=== PATIENT | female | born 1965 | race Caucasian/White ===

== ENCOUNTER 2023-06-19 14:30 | Inpatient (IN) | payer MEDICARE ==
[~2023-06-19 14:30] MED LIST: Iopamidol 370 76% 100 ML VIAL ONE
[2023-06-19] MEDS ORDERED: Morphine 4 MG/ML VIAL ONE (15:33)
[2023-06-19 15:34] LABS: #Basophils 0.1 10x3/uL (0.0-0.2); #Eosinphils 0.1 10x3/uL (0.0-0.5); #Monocytes 1.5 10x3/uL (0.0-1.1); #Neutrophils 8.9 10x3/uL (1.5-8.4); %Basophils 0.5 % (0.0-2.0); %Eosinophils 1.1 % (0.0-6.0); %Lymphocytes 5.4 % (18.0-47.0); %Monocytes 12.9 % (0.0-10.0); %Neutrophils 79.1 % (40.0-75.0); Hematocrit 34.9 % (34.9-44.5); Hemoglobin 11.8 g/dL (12.0-15.5); Mean Corpuscular HGB CONC 33.8 g/dL (32.0-36.0); Mean Corpuscular Hemoglobin 30.6 pg (27.0-33.0); Mean Corpuscular Volume 90.4 fl (81.6-98.3); Platelet Count 125 10x3/uL (150-450); RBC Distribution Width 14.3 % (11.5-14.5); Red Blood Cell (RBC) Count 3.86 10x6/uL (3.90-5.03); White Blood Cell (WBC) Count 11.3 10x3/uL (3.5-10.5)
[2023-06-19] MEDS ORDERED: Ondansetron PF 4 MG/2 ML Vial ONE (15:34)
[2023-06-19] MEDS ORDERED: Ketorolac Tromethamine 30 MG/ML VIAL ONE (15:34)
[2023-06-19 15:44] LABS: ALT (SGPT) 12 U/L (8-55); AST (SGOT) 12 U/L (5-34); Albumin 3.1 g/dL (3.5-5.0); Alkaline Phosphatase 211 U/L (40-110); Anion Gap 14 mmol/L (10-20); BUN (Urea Nitrogen) 19 mg/dL (9.8-20.1); Bilirubin, Total 2.8 mg/dL (0.2-1.2); Calc. Creatinine Clearance 0 mL/min (70-130); Calcium 8.5 mg/dL (7.8-10.44); Carbon Dioxide 20 mmol/L (22-29); Chloride 102 mmol/L (98-107); Estimated GFR 44; Globulin 2.6 g/dL (2.4-3.5); Glucose 96 mg/dL (70-105); Potassium 3.8 mmol/L (3.5-5.1); Protein, Total 5.7 g/dL (6.0-8.3); Sodium 132 mmol/L (136-145)
[2023-06-19 15:47] LABS: Troponin I Less than 0.010 ng/mL (< 0.028)
[2023-06-19 16:01] LABS: Acetaminophen Less than 10 mcg/mL (10.0-30.0); Alcohol Less than 10.0 mg/dL (Less than 10); Lipase 11 U/L (8-78); Salicylate Less than 8.0 mg/dL (15.0-30.0)
[2023-06-19 16:44] LABS: Bilirubin 3+ (Negative); Blood, Urine 50 (Negative); Clarity Cloudy (Clear); Glucose, Urine (Dipstick) Normal (Negative); Ketone, Urine Negative (Negative); Leukocyte 500 (Negative); Nitrite Negative (Negative); Protein, Urine (Dipstick) 100 mg/dl (Neg-Trace); Urobilinogen 12 mg/dL (Less than 2)
[2023-06-19 16:52] LABS: Amphetamine Not Detected (NotDetected); Barbiturates Screen Not Detected (NotDetected); Benzodiazepine Screen Detected (NotDetected); CAUTI Indications for Culture Pelvic or flank pain; Cocaine Metabolite Screen Not Detected (NotDetected); Methadone Not Detected (NotDetected); Methamphetamine Not Detected (NotDetected); Opiate Screen Detected (NotDetected); Oxycodone Screen Not Detected (NotDetected); Phencyclidine (PCP) Not Detected (NotDetected); Squamous Epithelial 0-3 HPF (0-3); THC/Cannabinoid Screen Not Detected (NotDetected); Tricyclic Screen Not Detected (NotDetected); WBC/HPF Greater Than 50 HPF (0-3)
[2023-06-19 16:53] LABS: Bacteria/HPF 3+ HPF (None Seen); Transitional Epithelial 0-3 HPF (None Seen); Urine Culture Reflex Yes Yes
[2023-06-19 17:26] LABS: SARS-CoV-2 NAA Rapid Test Not Detected (NotDetected)
[2023-06-19] MEDS ORDERED: cefTRIAXone (ROCEPHIN) 1 GM VIAL ONE (17:33)
[2023-06-19] MEDS ORDERED: diphenhydrAMINE 50 MG/ML VIAL ONE (18:50)
[2023-06-19] MEDS ORDERED: Metoclopramide HCl 10 MG/2 ML VIAL ONE (18:50)
[2023-06-19] MEDS ORDERED: Ondansetron PF 4 MG/2 ML Vial IVP PRN (20:10)
[2023-06-19] MEDS ORDERED: Guaifenesin DM 100-10/5 ML UDCUP PO PRN (20:10)
[2023-06-19] MEDS ORDERED: Calcium Carbonate 500 MG ChewTAB PO PRN (20:10)
[2023-06-19 21:25] VITALS: BMI 29.0
[2023-06-19] MEDS ORDERED: Albumin 25% 25 GM/100 ML BOT IVPB SCH (21:30)
[2023-06-19] MEDS ORDERED: Potassium Chloride 20 MEQ TAB PO SCH (21:30)
[2023-06-19] MEDS ORDERED: Lactated Ringer's 1,000 ML IV SCH (21:30)
[2023-06-19] MEDS: Acetaminophen 325 MG TAB PO PRN (21:56)
[2023-06-19 23:44] LABS: Troponin I Less than 0.010 ng/mL (< 0.028)
[2023-06-20] MEDS ORDERED: traMADol HCl 50 MG TAB PO SCH (00:15)
[2023-06-20] MEDS ORDERED: FLU VACC QS2023-24(6MOS UP)/PF 60 MCG/0.5 ML SYRINGE IM ONE (03:45)
[2023-06-20 07:43] LABS: Hemoglobin 10.6 g/dL (12.0-15.5); Mean Corpuscular HGB CONC 33.1 g/dL (32.0-36.0); Mean Corpuscular Hemoglobin 30.4 pg (27.0-33.0); Mean Corpuscular Volume 91.7 fl (81.6-98.3); Mean Platelet Volume 9.9 fl (7.4-10.4); Platelet Count 140 10x3/uL (150-450); RBC Distribution Width 14.8 % (11.5-14.5); Red Blood Cell (RBC) Count 3.49 10x6/uL (3.90-5.03); White Blood Cell (WBC) Count 11.9 10x3/uL (3.5-10.5)
[2023-06-20 07:48] LABS: ALT (SGPT) 11 U/L (8-55); AST (SGOT) 16 U/L (5-34); Alkaline Phosphatase 255 U/L (40-110); Anion Gap 13 mmol/L (10-20); BUN (Urea Nitrogen) 16 mg/dL (9.8-20.1); Bilirubin, Total 2.6 mg/dL (0.2-1.2); Calc. Creatinine Clearance 60 mL/min (70-130); Calcium 8.7 mg/dL (7.8-10.44); Carbon Dioxide 18 mmol/L (22-29); Chloride 110 mmol/L (98-107); Estimated GFR 49; Globulin 2.7 g/dL (2.4-3.5); Glucose 102 mg/dL (70-105); Protein, Total 5.7 g/dL (6.0-8.3); Sodium 137 mmol/L (136-145)
[2023-06-20] MEDS: Acetaminophen 325 MG TAB PO PRN (08:10)
[2023-06-20] MEDS: Escitalopram Oxalate 10 mg Tablet PO SCH (08:12)
[2023-06-20] MEDS: Multivitamin W/ Minerals 1 TAB PO SCH (08:12)
[2023-06-20] MEDS: Aspirin 81 mg Enteric Coated Tablet PO SCH (08:12)
[2023-06-20 08:41] LABS: Band 16 % (5-11); Eosinophils 2 % (0-10); Lymphocytes 8 % (21-51); Monocytes 11 % (0-10)
[2023-06-20 08:45] LABS: Neutrophil 58 % (42-75); Reactive Lymphocytes 5 % (0-10)
[2023-06-20 08:46] LABS: Ovalocytes SLIGHT = 2-5 cells (100X) (0-1/hpf)
[2023-06-20 08:47] LABS: Anisocytosis SLIGHT = 6-15 cells (100X) (0-5/hpf); Platelet Adequacy Comment Appears Adequate
[2023-06-20 08:49] LABS: MDiff Complete? YES
[2023-06-20 09:18] LABS: Free T4 (Free Thyroxine) 1.04 ng/dL (0.70-1.48); Thyroid Stimulating Hormone 1.9867 uIU/mL (0.35-4.94)
[2023-06-20] MEDS: Acetaminophen/Codeine 30-300mg Tablet PO PRN ×2 (12:52→21:21)
[2023-06-20] MEDS: diphenhydrAMINE 25 MG CAP PO PRN ×2 (12:53→21:29)
[2023-06-20] MEDS: cefTRIAXone\\ROCEPHIN 1 GM in Sodium Chloride 0.9% 100 ML IVPB SCH (17:49)
[2023-06-20] MEDS: Amlodipine 5 MG TAB PO SCH (21:23)
[2023-06-20] MEDS: busPIRone HCl 15 MG TAB PO SCH (21:23)
[2023-06-21] MEDS: Acetaminophen 325 MG TAB PO PRN (04:37)
[2023-06-21] MEDS ORDERED: Carvedilol 3.125 MG TAB PO SCH (08:00)
[2023-06-21 08:12] LABS: Hemoglobin 10.5 g/dL (12.0-15.5); Mean Corpuscular HGB CONC 33.9 g/dL (32.0-36.0); Mean Corpuscular Hemoglobin 30.2 pg (27.0-33.0); Mean Corpuscular Volume 89.1 fl (81.6-98.3); Mean Platelet Volume 9.3 fl (7.4-10.4); Platelet Count 176 10x3/uL (150-450); RBC Distribution Width 14.5 % (11.5-14.5); Red Blood Cell (RBC) Count 3.48 10x6/uL (3.90-5.03); White Blood Cell (WBC) Count 9.4 10x3/uL (3.5-10.5)
[2023-06-21 08:17] LABS: Troponin I Less than 0.010 ng/mL (< 0.028)
[2023-06-21 08:35] LABS: ALT (SGPT) 11 U/L (8-55); AST (SGOT) 21 U/L (5-34); Albumin 2.9 g/dL (3.5-5.0); Alkaline Phosphatase 246 U/L (40-110); Anion Gap 13 mmol/L (10-20); BUN (Urea Nitrogen) 11 mg/dL (9.8-20.1); Calc. Creatinine Clearance 70 mL/min (70-130); Calcium 8.7 mg/dL (7.8-10.44); Carbon Dioxide 20 mmol/L (22-29); Chloride 109 mmol/L (98-107); Estimated GFR 59; Globulin 2.8 g/dL (2.4-3.5); Glucose 96 mg/dL (70-105); Magnesium 1.8 mg/dL (1.6-2.6); Potassium 3.3 mmol/L (3.5-5.1); Protein, Total 5.7 g/dL (6.0-8.3); Sodium 139 mmol/L (136-145)
[2023-06-21 08:46] LABS: Band 14 % (5-11); Eosinophils 1 % (0-10); Lymphocytes 8 % (21-51); Metamyelocyte 1 % (0-0); Monocytes 13 % (0-10); Myelocyte 1 % (0-0); Neutrophil 60 % (42-75); Reactive Lymphocytes 2 % (0-10)
[2023-06-21] MEDS: Multivitamin W/ Minerals 1 TAB PO SCH (08:47)
[2023-06-21] MEDS: Magnesium Oxide 400 MG TAB PO SCH (08:47)
[2023-06-21] MEDS: busPIRone HCl 15 MG TAB PO SCH ×2 (08:47→20:16)
[2023-06-21] MEDS: Aspirin 81 mg Enteric Coated Tablet PO SCH (08:48)
[2023-06-21] MEDS: Escitalopram Oxalate 10 mg Tablet PO SCH (08:48)
[2023-06-21 08:52] LABS: Platelet Adequacy Comment Appears Adequate; Platelet Clumps SLIGHT; RBC Morph Comment Within Normal Limits
[2023-06-21 08:53] LABS: MDiff Complete? YES
[2023-06-21] MEDS ORDERED: Magnesium 2 GM/50 ML(in water) 2 GM in Premix 1 BAG IVPB SCH ×3 (10:00→16:45)
[2023-06-21] MEDS ORDERED: Potassium Chloride 20 MEQ TAB PO SCH ×3 (10:00→16:45)
[2023-06-21] MEDS: Acetaminophen/Codeine 30-300mg Tablet PO PRN ×2 (10:03→20:16)
[2023-06-21] MEDS: cefTRIAXone\\ROCEPHIN 1 GM in Sodium Chloride 0.9% 100 ML IVPB SCH (17:01)
[2023-06-21] MEDS: Carvedilol 3.125 MG TAB PO SCH (17:05)
[2023-06-21] MEDS: Lactated Ringer's 1,000 ML IV SCH (17:06)
[2023-06-21] MEDS: diphenhydrAMINE 25 MG CAP PO PRN (18:09)
[2023-06-21] MEDS: Amlodipine 5 MG TAB PO SCH (20:16)
[2023-06-21] MEDS: Senokot S 8.6-50 MG TAB PO PRN (20:23)
[2023-06-22] MEDS: Acetaminophen/Codeine 30-300mg Tablet PO PRN ×2 (03:42→12:52)
[2023-06-22] MEDS: diphenhydrAMINE 25 MG CAP PO PRN ×2 (03:47→12:52)
[2023-06-22 06:06] LABS: Anion Gap 11 mmol/L (10-20); BUN (Urea Nitrogen) 10 mg/dL (9.8-20.1); Calc. Creatinine Clearance 87 mL/min (70-130); Calcium 8.2 mg/dL (7.8-10.44); Carbon Dioxide 21 mmol/L (22-29); Chloride 107 mmol/L (98-107); Estimated GFR 76; Glucose 111 mg/dL (70-105); Potassium 3.5 mmol/L (3.5-5.1); Sodium 135 mmol/L (136-145)
[2023-06-22 07:13] LABS: Band 6 % (5-11); Eosinophils 1 % (0-10); Lymphocytes 14 % (21-51); Monocytes 3 % (0-10); Neutrophil 75 % (42-75); Reactive Lymphocytes 1 % (0-10)
[2023-06-22 07:14] LABS: Platelet Adequacy Comment Appears Adequate
[2023-06-22 07:15] LABS: Hematocrit 28.1 % (34.9-44.5); Hemoglobin 9.9 g/dL (12.0-15.5); Mean Corpuscular HGB CONC 35.2 g/dL (32.0-36.0); Mean Corpuscular Volume 88.1 fl (81.6-98.3); Platelet Count 219 10x3/uL (150-450); RBC Distribution Width 14.6 % (11.5-14.5); RBC Morph Comment Within Normal Limits; Red Blood Cell (RBC) Count 3.19 10x6/uL (3.90-5.03); White Blood Cell (WBC) Count 11.1 10x3/uL (3.5-10.5)
[2023-06-22 07:22] LABS: MDiff Complete? YES
[2023-06-22] MEDS: Lactated Ringer's 1,000 ML IV SCH ×2 (07:44→08:23)
[2023-06-22] MEDS: Aspirin 81 mg Enteric Coated Tablet PO SCH (08:23)
[2023-06-22] MEDS: Carvedilol 3.125 MG TAB PO SCH (08:23)
[2023-06-22] MEDS: Magnesium Oxide 400 MG TAB PO SCH (08:23)
[2023-06-22] MEDS: busPIRone HCl 15 MG TAB PO SCH (08:23)
[2023-06-22] MEDS: Escitalopram Oxalate 10 mg Tablet PO SCH (08:23)
[2023-06-22] MEDS: Multivitamin W/ Minerals 1 TAB PO SCH (08:23)
[2023-06-22] MEDS: Labetalol HCl 100 MG/20 ML VIAL SLOW IVP PRN ×2 (12:52→14:07)
[2023-06-22] MEDS ORDERED: Potassium Chloride 20 MEQ TAB PO SCH (14:15)
[2023-06-22] MEDS ORDERED: Fioricet 325/50/40 mg Tablet PO SCH (15:00)
[2023-06-22] MEDS ORDERED: Labetalol HCl 100 MG/20 ML VIAL SLOW IVP PRN (15:22)
[2023-06-22] MEDS ORDERED: Escitalopram Oxalate 10 mg Tablet PO SCH (15:30)
[2023-06-22] MEDS: Carvedilol 6.25 MG TAB PO SCH (16:51)
[2023-06-22] MEDS: cefTRIAXone\\ROCEPHIN 2 GM in Sodium Chloride 0.9% 100 ML IVPB SCH (18:43)
[2023-06-22] MEDS ORDERED: Losartan 25 MG TAB PO SCH ×2 (21:00)
[2023-06-22] MEDS: Temazepam 15 MG CAP PO PRN (21:22)
[2023-06-22] MEDS: Saccharomyces boulardii 250 MG CAP PO SCH (21:23)
[2023-06-22] MEDS: Senokot S 8.6-50 MG TAB PO PRN (21:31)
[2023-06-23 05:54] LABS: ALT (SGPT) 10 U/L (8-55); Albumin 2.7 g/dL (3.5-5.0); Alkaline Phosphatase 203 U/L (40-110); Anion Gap 13 mmol/L (10-20); BUN (Urea Nitrogen) 9 mg/dL (9.8-20.1); Calc. Creatinine Clearance 87 mL/min (70-130); Calcium 8.5 mg/dL (7.8-10.44); Carbon Dioxide 23 mmol/L (22-29); Chloride 106 mmol/L (98-107); Estimated GFR 77; Globulin 3.5 g/dL (2.4-3.5); Glucose 84 mg/dL (70-105); Potassium 4.4 mmol/L (3.5-5.1); Protein, Total 6.2 g/dL (6.0-8.3); Sodium 138 mmol/L (136-145)
[2023-06-23 05:57] LABS: AST (SGOT) 26 U/L (5-34)
[2023-06-23 05:59] LABS: Hematocrit 29.9 % (34.9-44.5); Hemoglobin 10.3 g/dL (12.0-15.5); Mean Corpuscular HGB CONC 34.4 g/dL (32.0-36.0); Mean Corpuscular Hemoglobin 30.7 pg (27.0-33.0); Red Blood Cell (RBC) Count 3.36 10x6/uL (3.90-5.03); White Blood Cell (WBC) Count 9.3 10x3/uL (3.5-10.5)
[2023-06-23 06:00] LABS: #Basophils 0.1 10x3/uL (0.0-0.2); #Eosinphils 0.2 10x3/uL (0.0-0.5); #Monocytes 0.9 10x3/uL (0.0-1.1); #Neutrophils 6.3 10x3/uL (1.5-8.4); %Basophils 0.6 % (0.0-2.0); %Eosinophils 2.2 % (0.0-6.0); %Lymphocytes 16.3 % (18.0-47.0); %Neutrophils 68.1 % (40.0-75.0); Mean Platelet Volume 8.7 fl (7.4-10.4); Platelet Count 244 10x3/uL (150-450); RBC Distribution Width 14.8 % (11.5-14.5)
[2023-06-23] MEDS ORDERED: Losartan 25 MG TAB PO SCH ×3 (09:00→21:00)
[2023-06-23] MEDS: Fioricet 325/50/40 mg Tablet PO PRN ×3 (09:14→23:19)
[2023-06-23] MEDS: Aspirin 81 mg Enteric Coated Tablet PO SCH (09:16)
[2023-06-23] MEDS: Multivitamin W/ Minerals 1 TAB PO SCH (09:16)
[2023-06-23] MEDS: Carvedilol 6.25 MG TAB PO SCH ×2 (09:16→17:05)
[2023-06-23] MEDS: Magnesium Oxide 400 MG TAB PO SCH (09:17)
[2023-06-23] MEDS: Escitalopram Oxalate 20 mg Tablet PO SCH (12:26)
[2023-06-23] MEDS: cefTRIAXone\\ROCEPHIN 2 GM in Sodium Chloride 0.9% 100 ML IVPB SCH (17:06)
[2023-06-23] MEDS ORDERED: Fioricet 325/50/40 mg Tablet PO SCH (17:30)
[2023-06-23] MEDS ORDERED: Losartan 50 MG TAB PO SCH (17:30)
[2023-06-23] MEDS: Saccharomyces boulardii 250 MG CAP PO SCH (19:58)
[2023-06-23] MEDS: Temazepam 15 MG CAP PO PRN (22:34)
[2023-06-24 05:20] LABS: #Basophils 0.1 10x3/uL (0.0-0.2); #Eosinphils 0.2 10x3/uL (0.0-0.5); #Monocytes 0.9 10x3/uL (0.0-1.1); #Neutrophils 6.9 10x3/uL (1.5-8.4); %Basophils 0.5 % (0.0-2.0); %Eosinophils 2.1 % (0.0-6.0); %Monocytes 9.4 % (0.0-10.0); %Neutrophils 70.4 % (40.0-75.0); Hemoglobin 10.3 g/dL (12.0-15.5); Mean Corpuscular HGB CONC 34.3 g/dL (32.0-36.0); Mean Corpuscular Hemoglobin 30.5 pg (27.0-33.0); Mean Corpuscular Volume 88.8 fl (81.6-98.3); Mean Platelet Volume 8.8 fl (7.4-10.4); Platelet Count 266 10x3/uL (150-450); RBC Distribution Width 14.8 % (11.5-14.5); Red Blood Cell (RBC) Count 3.38 10x6/uL (3.90-5.03); White Blood Cell (WBC) Count 9.8 10x3/uL (3.5-10.5)
[2023-06-24 05:30] LABS: Anion Gap 12 mmol/L (10-20); BUN (Urea Nitrogen) 9 mg/dL (9.8-20.1); Calc. Creatinine Clearance 94 mL/min (70-130); Calcium 8.4 mg/dL (7.8-10.44); Carbon Dioxide 26 mmol/L (22-29); Chloride 105 mmol/L (98-107); Estimated GFR 85; Glucose 98 mg/dL (70-105); Potassium 3.5 mmol/L (3.5-5.1); Sodium 139 mmol/L (136-145)
[2023-06-24] MEDS: Magnesium Oxide 400 MG TAB PO SCH (08:57)
[2023-06-24] MEDS: Multivitamin W/ Minerals 1 TAB PO SCH (08:57)
[2023-06-24] MEDS: Aspirin 81 mg Enteric Coated Tablet PO SCH (08:57)
[2023-06-24] MEDS: Carvedilol 6.25 MG TAB PO SCH ×2 (08:58→17:10)
[2023-06-24] MEDS: Losartan 50 MG TAB PO SCH ×2 (08:58→21:38)
[2023-06-24 09:14] LABS: Magnesium 1.8 mg/dL (1.6-2.6)
[2023-06-24] MEDS: CeleCOXIB 100 MG CAP PO PRN (10:11)
[2023-06-24] MEDS: Escitalopram Oxalate 20 mg Tablet PO SCH (10:12)
[2023-06-24] MEDS ORDERED: Potassium Chloride 20 MEQ TAB PO SCH (10:15)
[2023-06-24] MEDS ORDERED: Magnesium 2 GM/50 ML(in water) 2 GM in Premix 1 BAG IVPB SCH (10:15)
[2023-06-24] MEDS: Acetaminophen 325 MG TAB PO PRN (11:51)
[2023-06-24] MEDS ORDERED: Ibuprofen 200 MG TAB PO PRN (16:00)
[2023-06-24] MEDS ORDERED: Fioricet 325/50/40 mg Tablet PO SCH (16:16)
[2023-06-24] MEDS: cefTRIAXone\\ROCEPHIN 2 GM in Sodium Chloride 0.9% 100 ML IVPB SCH (17:57)
[2023-06-24] MEDS: Saccharomyces boulardii 250 MG CAP PO SCH (21:38)
[2023-06-24] MEDS: Temazepam 15 MG CAP PO PRN (21:40)
[2023-06-25 03:53] LABS: #Basophils 0.1 10x3/uL (0.0-0.2); #Eosinphils 0.2 10x3/uL (0.0-0.5); #Neutrophils 7.6 10x3/uL (1.5-8.4); %Basophils 0.7 % (0.0-2.0); %Eosinophils 1.8 % (0.0-6.0); %Lymphocytes 14.6 % (18.0-47.0); %Monocytes 9.1 % (0.0-10.0); %Neutrophils 71.7 % (40.0-75.0); Hemoglobin 10.8 g/dL (12.0-15.5); Mean Corpuscular HGB CONC 33.8 g/dL (32.0-36.0); Mean Corpuscular Hemoglobin 30.4 pg (27.0-33.0); Mean Corpuscular Volume 90.1 fl (81.6-98.3); Mean Platelet Volume 8.8 fl (7.4-10.4); Platelet Count 265 10x3/uL (150-450); RBC Distribution Width 14.7 % (11.5-14.5); Red Blood Cell (RBC) Count 3.55 10x6/uL (3.90-5.03); White Blood Cell (WBC) Count 10.6 10x3/uL (3.5-10.5)
[2023-06-25 04:07] LABS: Anion Gap 12 mmol/L (10-20); BUN (Urea Nitrogen) 13 mg/dL (9.8-20.1); Calc. Creatinine Clearance 89 mL/min (70-130); Calcium 8.6 mg/dL (7.8-10.44); Carbon Dioxide 27 mmol/L (22-29); Chloride 105 mmol/L (98-107); Estimated GFR 79; Glucose 96 mg/dL (70-105); Magnesium 2.2 mg/dL (1.6-2.6); Potassium 3.8 mmol/L (3.5-5.1); Sodium 140 mmol/L (136-145)
[2023-06-25 08:53] VITALS: TEMP 97.5
[2023-06-25] MEDS: Multivitamin W/ Minerals 1 TAB PO SCH (09:35)
[2023-06-25] MEDS: Aspirin 81 mg Enteric Coated Tablet PO SCH (09:37)
[2023-06-25] MEDS: Escitalopram Oxalate 20 mg Tablet PO SCH (09:38)
[2023-06-25] MEDS: Carvedilol 6.25 MG TAB PO SCH (09:38)
[2023-06-25] MEDS: CeleCOXIB 100 MG CAP PO PRN (09:38)
[2023-06-25] MEDS: Losartan 50 MG TAB PO SCH (09:39)
[2023-06-25] MEDS: Magnesium Oxide 400 MG TAB PO SCH (09:39)
[2023-06-25 12:11] VITALS: BP 135/83
[2023-06-25] MEDS ORDERED: Potassium Chloride 20 MEQ TAB PO SCH (14:00)
== END 2023-06-25 15:15 | disposition home or self-care (01) | DRG 871 ==
LOC: CSHERS 14:30 → CSHTELE 18:45
PROVIDERS: ADMIT Internal Medicine; ATTEND Internal Medicine
PROC: 30233J1 Transfusion of Nonautologous Serum Albumin into Peripheral Vein, Percutaneous Approach (ICD-10-PCS; principal; 2023-06-19)
PROC: 3E03329 Introduction of Other Anti-infective into Peripheral Vein, Percutaneous Approach (ICD-10-PCS; 2023-06-19)
DX: A41.51 Sepsis due to Escherichia coli [E. coli] (principal); G93.41 Metabolic encephalopathy; E87.1 Hypo-osmolality and hyponatremia; N39.0 Urinary tract infection, site not specified; N10 Acute pyelonephritis; N17.9 Acute kidney failure, unspecified; N13.30 Unspecified hydronephrosis; M19.90 Unspecified osteoarthritis, unspecified site; W19.XXXA Unspecified fall, initial encounter; I12.9 Hypertensive chronic kidney disease with stage 1 through stage 4 chronic kidney disease, or unspecified chronic kidney disease; N18.2 Chronic kidney disease, stage 2 (mild); F32.A Depression, unspecified; M54.2 Cervicalgia; G89.29 Other chronic pain; F41.1 Generalized anxiety disorder; E66.9 Obesity, unspecified; Z88.5 Allergy status to narcotic agent; Z90.49 Acquired absence of other specified parts of digestive tract; Z90.710 Acquired absence of both cervix and uterus; Z98.890 Other specified postprocedural states; Z82.49 Family history of ischemic heart disease and other diseases of the circulatory system; Z87.891 Personal history of nicotine dependence; Z11.52 Encounter for screening for COVID-19; Z68.29 Body mass index [BMI] 29.0-29.9, adult
CPT/HCPCS: 36415; 70450; 70551; 71045; 71275; 74176; 76770; 80048; 80053; 80306; 80307; 81001; 83690; 83735; 83880; 84145; 84439; 84443; 84484; 85025; 85379; 87077; 87086; 87186; 93005; 93010; 96361; 96365; 96375; J0696; J1200; J1650; J1885; J2270; J2405; J2765; J3475; J3490; J7120; P9047; Q9967